=== PATIENT | male | born 1945 | race Two or more races ===

== ENCOUNTER 2021-09-23 21:39 | Emergency (ER) | payer OTHER ==
[~2021-09-23] VITALS: Ht 170.2 cm; Wt 72.6 kg
[2021-09-23] MEDS ORDERED: LISINOPRIL5 MG (22:24)
[2021-09-23] MEDS ORDERED: [UNRECOGNIZED DRUG - OTHER] (22:25)
[2021-09-23] MEDS ORDERED: SYNTHROID (22:25)
[2021-09-23] MEDS ORDERED: COUMADIN (22:25)
[2021-09-23] MEDS ORDERED: LIPITOR (22:26)
[2021-09-23] MEDS ORDERED: METROPOLOL (22:26)
[2021-09-24] MEDS ORDERED: PEPCID AC20 MG PO (18:02)
[2021-09-24] MEDS ORDERED: INTESTINEX680 M1 PO (18:02)
[2021-09-24] MEDS ORDERED: MONODOX100 MG PO (18:02)
== END 2021-09-24 18:38 | disposition home or self-care (01) ==
LOC: ER 21:39
DX: L03.116 Cellulitis of left lower limb (principal); L03.115 Cellulitis of right lower limb; D64.9 Anemia, unspecified; E11.9 Type 2 diabetes mellitus without complications; I10 Essential (primary) hypertension